=== PATIENT | male | born 1990 | race African-American/Black ===

== ENCOUNTER 2019-05-23 12:16 | Emergency (ER) | payer MEDICAID ==
[~2019-05-23] VITALS: Ht 177.8 cm; Wt 80.9 kg
[2019-05-23 12:18] VITALS: BP 100/45
--- NOTE | 2019-05-23 12:28 | NUR ---
DENTAL PAIN LEFT SIDE OF MOUTH
[2019-05-23] MEDS ORDERED: HYDROcodone/APAP 5/325 TABLET ONE (12:35)
[2019-05-23] MEDS ORDERED: HYDROcodone/APAP 5/325 TABLET PO ONE (13:00)
== END 2019-05-23 12:58 | disposition home or self-care (01) ==
LOC: ED 12:52
DX: K02.9 Dental caries, unspecified (principal); F17.200 Nicotine dependence, unspecified, uncomplicated
CPT/HCPCS: 99283

== ENCOUNTER 2020-06-12 09:45 | Emergency (ER) | payer MEDICAID, OTHER ==
[~2020-06-12] VITALS: Ht 177.8 cm; Wt 72.8 kg
[2020-06-12 09:47] VITALS: BP 106/59
== END 2020-06-12 11:15 | disposition home or self-care (01) ==
LOC: ED 10:57
DX: F43.22 Adjustment disorder with anxiety (principal); R06.02 Shortness of breath
CPT/HCPCS: 93005; 99283

== ENCOUNTER 2021-04-10 11:23 | Emergency (ER) | payer OTHER ==
[~2021-04-10] VITALS: Ht 177.8 cm; Wt 88.5 kg
[2021-04-10] MEDS ORDERED: METHOCARBAMOL 750 MG TABLET PO ONE (11:30)
[2021-04-10] MEDS ORDERED: KETOROLAC 30 MG/1 ML IM ONE (11:30)
[2021-04-10] MEDS ORDERED: METHOCARBAMOL 750 MG TABLET ONE (11:39)
[2021-04-10] MEDS ORDERED: KETOROLAC 30 MG/1 ML ONE (11:40)
--- NOTE | 2021-04-10 12:51 | NUR ---
PT IN RAD. NECK WAS CLEARD BY DR. RAYGOZA AND C-COLLAR REMOVED.
[2021-04-10 14:26] VITALS: BP 125/76
== END 2021-04-10 14:37 | disposition home or self-care (01) ==
LOC: ED 12:31
DX: S16.1XXA Strain of muscle, fascia and tendon at neck level, initial encounter (principal); S29.012A Strain of muscle and tendon of back wall of thorax, initial encounter; W01.0XXA Fall on same level from slipping, tripping and stumbling without subsequent striking against object, initial encounter; Y93.89 Activity, other specified; Y92.89 Other specified places as the place of occurrence of the external cause; Y99.8 Other external cause status
CPT/HCPCS: 72072; 72110; 72125; 96372; 99284; J1885